=== PATIENT | female | born 1975 | race Caucasian/White ===

== ENCOUNTER → 2022-09-30 14:49 | Outpatient (BNVA) | payer MEDICAID, SELFPAY | PROVIDERS: PCP Registered Nurse; Visit Provider Orthopaedic Surgery | DX: R20.0 Anesthesia of skin (principal); R20.2 Paresthesia of skin | CPT/HCPCS: 99202 ==

== ENCOUNTER 2022-11-13 11:50 | Outpatient (REF) | payer MEDICAID, SELFPAY ==
--- NOTE | 2022-11-13 09:30 | EMG_ITS ---
Please see scanned EMG / Nerve Conduction Report. MTDD
== END 2022-11-13 11:51 | disposition home or self-care (01) ==
LOC: HO.NEURO 11:50
PROVIDERS: PCP Registered Nurse; Visit Provider Orthopaedic Surgery
DX: R20.0 Anesthesia of skin (principal); R20.2 Paresthesia of skin
CPT/HCPCS: 95885; 95913